=== PATIENT | male | born 1960 | race Caucasian/White ===

== ENCOUNTER 2017-04-30 07:53 | Day surgery (SDC) | payer BC ==
[2017-04-30] MEDS ORDERED: PROPOFOL 500 MG/50 ML EMU IV ONE (08:19)
[2017-04-30] MEDS ORDERED: MIDAZOLAM 2 MG/2 ML SOL ONE (08:19)
[2017-04-30] MEDS ORDERED: LIDOCAINE HCL 1% MPF SOL ONE (08:19)
[2017-04-30] MEDS ORDERED: FENTANYL 100MCG/2ML SOL ONE (08:19)
[2017-04-30] MEDS ORDERED: PROPOFOL 10 MG/ML EMU IV ONE (08:33)
[2017-04-30] MEDS ORDERED: CEFAZOLIN SODIUM 1 GM PDS ONE ×2 (09:10→09:49)
[2017-04-30] MEDS: LIDOCAINE HCL 1% MPF SOL ONE ×2 (10:02→10:16)
[2017-04-30 10:41] VITALS: O2SAT 97
[2017-04-30 11:10] VITALS: BP 127/72; PULSE 65; RESP 20; TEMP 97
== END 2017-04-30 11:30 | disposition home or self-care (01) ==
LOC: SURG 07:53
PROVIDERS: ATTEND Orthopaedic Surgery
DX: G56.01 Carpal tunnel syndrome, right upper limb (principal)
CPT/HCPCS: 64721; J0690 ×2; J2001 ×2; J2250; J2704; J3010

== ENCOUNTER 2017-05-07 07:47 | Day surgery (SDC) | payer BC ==
[2017-05-07] MEDS ORDERED: MIDAZOLAM 2 MG/2 ML SOL ONE (11:27)
[2017-05-07] MEDS ORDERED: LIDOCAINE HCL 1% MPF SOL ONE (11:27)
[2017-05-07] MEDS ORDERED: PROPOFOL 500 MG/50 ML EMU IV ONE (11:27)
[2017-05-07] MEDS ORDERED: FENTANYL 100MCG/2ML SOL ONE (11:27)
[2017-05-07] MEDS: LIDOCAINE HCL 1% MPF SOL ONE ×2 (11:51→11:59)
[2017-05-07] MEDS ORDERED: CEFAZOLIN SODIUM 1 GM PDS ONE (13:14)
[2017-05-07 13:26] VITALS: BP 128/79; PULSE 67; RESP 20; TEMP 97; O2SAT 98
== END 2017-05-07 13:30 | disposition home or self-care (01) ==
LOC: SURG 07:47
PROVIDERS: ATTEND Orthopaedic Surgery
DX: G56.02 Carpal tunnel syndrome, left upper limb (principal)
CPT/HCPCS: 64721; J0690; J2001 ×2; J2250; J2704; J3010; A6402